=== PATIENT | male | born 1975 | race Caucasian/White ===

== ENCOUNTER 2019-08-12 00:33 | Inpatient (IN) ==
[2019-08-12] MEDS ORDERED: ONDANSETRON INJ 2 MG/ML 2 ML VIAL IV STA (00:53)
[2019-08-12] MEDS ORDERED: MoRPHine SULFATE 4 MG/ML 1 ML CARP\\VIAL IV STA (00:53)
[2019-08-12] MEDS ORDERED: SODIUM CHLORIDE 0.9% 1000ML 1,000 ML IV SCH (01:00)
[2019-08-12 01:06] LABS: Basophils # (auto) 0.06 K/uL (0-0.2); Basophils % (auto) 0.5 %; Eosinophils # (auto) 0.21 K/uL (0-0.5); Eosinophils % (auto) 1.7 %; Hematocrit (blood only) 44.8 % (42-52); Hemoglobin 15.5 g/dL (14.0-18.0); Immature Granulocytes # (auto) 0.03 K/uL (0.00-0.02); Immature Granulocytes % (auto) 0.2 %; Lymphocytes # (auto) 1.52 K/uL (1.2-3.4); Mean Corpuscular Hgb Conc 34.6 g/dL (32-36); Mean Corpuscular Volume 86.7 fL (80-100); Mean Platelet Volume 9.4 fL (7.4-10.4); Monocytes # (auto) 0.62 K/uL (0.11-0.59); Monocytes % (auto) 4.9 %; Neutrophils # (auto) 10.23 K/uL (1.4-6.5); Neutrophils % (auto) 80.7 %; Platelet Count 283 K/uL (130-400); RDW Coefficient of Variation 13.3 % (11.5-14.5); RDW Standard Deviation 42.2 fL (36.4-46.3); Red Blood Count 5.17 M/uL (4.7-6.1); White Blood Count 12.67 K/uL (4.8-10.8)
--- NOTE | 2019-08-12 01:09 | Emergency Department Note ---
History of Present Illness General Chief complaint: Abdominal Pain Stated complaint: SEVERE ABDOMINAL PAIN History of Present Illness Maximum Pain Intensity: 10 This 43-year-old presents to the ER complaining of abdominal pain Location: Abdomen Quality: Severe Severity: Severe Duration: Past few hours Timing: Started tonight Context: Patient was concerned and came in Modifying factors: better with nothing; worse with movement No prior abdominal surgeries. Patient denies chest pain, dyspnea, fevers, back pain. He does complain of testicular discomfort. No history of similar symptoms in the past. Home Medications Home Medications Medication Instructions Recorded Confirmed Type No Known Home Medications 08/12/19 08/12/19 History Allergies Allergy/AdvReac Type Severity Reaction Status Date / Time Quinolones Allergy Mild Unknown Unverified 09/29/18 10:59 Past Med/Surg History Medical History No significant past medical history Surgical History No significant past surgical history Social History Preferred Language: Danish marital status: Single current occupational status: employed Feels Safe at Home: Yes Smoking Status: Never smoker Hx Alcohol Use: No Review of Systems A total of 10 systems reviewed and were otherwise negative Physical Exam Vital Signs Vital Signs - 24 hr 08/12/19 00:35 08/12/19 01:04 Temperature 36.6 C Temperature Source Oral Pulse Rate 62 Pulse Rate [Right Finger] 56 L Pulse Rhythm Regular Pulse Rhythm [Right Finger] Regular Pulse Strength Normal Respiratory Rate 20 16 Respiratory Effort / Characteristics Non-Labored Spontaneous Non-Labored Spontaneous Respiratory Depth Normal Normal Respiratory Pattern Regular Blood Pressure 127/85 Blood Pressure [Right Arm] 126/76 Blood Pressure Mean 99 Blood Pressure Mean [Right Arm] 92 Blood Pressure Position Sitting Pulse Oximetry 98 98 Oxygen Delivery Method Room Air Room Air Sepsis Recent Fever Within 48 Hours No Sepsis Action Taken by Nursing No Action Required VITALS: Vitals are noted on the nurse's note and reviewed by myself. Vital signs stable. GENERAL: White male writhing in pain trying to vomit, in mild acute distress, nondiaphoretic, well-developed well-nourished. SKIN: Capillary reflex less than 2 seconds. HEENT: Normocephalic. PERRLA. EOMI. Nares patent. Mucous membranes moist. Neck is supple without nuchal rigidity. HEART: Regular rate and rhythm without murmurs gallops or rubs. LUNGS: Clear to auscultation bilaterally without wheezes, rales or rhonchi. No retractions or accessory muscle use. ABDOMEN: Positive bowel sounds x 4. Normal tympanic percussion. Soft, diffusely tender to palpation, without masses or organomegaly. Vines sign negative. No guarding or rebound tenderness. No CVA tenderness exam: Normal male genitalia, cremasteric reflex intact bilaterally, left testicle minimally tender to palpation diffusely without localized pain. Right testicle nontender to palpation. Regulatory Compliance Coordinator of the tech Tammy present. MUSCULOSKELETAL: No gross musculoskeletal defects. NEURO: Patient was alert and oriented to person place and time. Normal sensation to light and sharp touch. No focal neurological deficits. Course Administered Medications Ioversol (Optiray 320 100ml) 100 ml IV ONCE PRN PRN Reason: Interaction Checking Stop: 08/16/19 01:41 Last Admin: 08/12/19 01:42 Dose: 93 ml Documented by: [id number] Discontinued Medications Sodium Chloride (Nss 1000ml) 1,000 mls @ 999 mls/hr IV .Q1H1M JAIDA Stop: 08/12/19 02:00 Last Infusion: 08/12/19 02:37 Dose: 0 mls/hr Documented by: [id number] Admin: 08/12/19 01:03 Dose: 999 mls/hr Documented by: [id number] Ketorolac Tromethamine (Toradol) 10 mg IV NOW STA Stop: 08/12/19 01:15 Last Admin: 08/12/19 01:21 Dose: 10 mg Documented by: [id number] Morphine Sulfate (Morphine Sulfate) 4 mg IV NOW STA Stop: 08/12/19 00:54 Last Admin: 08/12/19 01:03 Dose: 4 mg Documented by: [id number] Ondansetron HCl (Zofran) 4 mg IV NOW STA Stop: 08/12/19 00:54 Last Admin: 08/12/19 01:03 Dose: 4 mg Documented by: [id number] Medical Decision Making Medical Records Attestation: I reviewed the patient's medical records. Home Medications Current Medication List: was personally reviewed by me Laboratory Data Attestation: I reviewed the patient's lab results. Result diagrams: 08/12/19 00:50 08/12/19 00:50 Lab Results 08/12/19 08/12/19 Range/Units 00:50 00:50 WBC 12.67 H (4.8-10.8) K/uL RBC 5.17 (4.7-6.1) M/uL Hgb 15.5 (14.0-18.0) g/dL Hct 44.8 (42-52) % MCV 86.7 (80-100) fL MCH 30.0 (25-34) pg MCHC 34.6 (32-36) g/dL RDW Std Deviation 42.2 (36.4-46.3) fL RDW Coeff of Hernandez 13.3 (11.5-14.5) % Plt Count 283 (130-400) K/uL MPV 9.4 (7.4-10.4) fL Immature Gran % (Auto) 0.2 % Neut % (Auto) 80.7 % Lymph % (Auto) 12.0 % Brewster % (Auto) 4.9 % Eos % (Auto) 1.7 % Baso % (Auto) 0.5 % Immature Gran # (Auto) 0.03 H (0.00-0.02) K/uL Neut # (Auto) 10.23 H (1.4-6.5) K/uL Lymph # (Auto) 1.52 (1.2-3.4) K/uL Brewster # (Auto) 0.62 H (0.11-0.59) K/uL Eos # (Auto) 0.21 (0-0.5) K/uL Baso # (Auto) 0.06 (0-0.2) K/uL Sodium 138 (136-145) mmol/L Potassium 3.8 (3.5-5.1) mmol/L Chloride 103 (98-107) mmol/L Carbon Dioxide 30 (21-32) mmol/L Anion Gap 5.0 (3-11) BUN 14 (7-18) mg/dl Creatinine 0.91 (0.6-1.4) mg/dl Est Cr Clr Drug Dosing 83.2 ml/min Est GFR ( Amer) 120.1 Est GFR (Non-Af Amer) 103.6 BUN/Creatinine Ratio 15.2 (10-20) Glucose 102 H (70-99) mg/dl Calcium 9.7 (8.5-10.1) mg/dl Total Bilirubin 0.5 (0.2-1) mg/dl AST 19 (15-37) U/L ALT 16 (12-78) U/L Alkaline Phosphatase 110 (45-117) U/L Total Protein 7.7 (6.4-8.2) gm/dl Albumin 4.2 (3.4-5.0) gm/dl Globulin 3.5 (2.5-4.0) gm/dl Albumin/Globulin Ratio 1.2 (0.9-2) Imaging Data Attestation: I personally reviewed and interpreted this imaging study as follows: Blood Pressure Blood Pressure Findings: Normal blood pressure MDM Narrative Prior records/ancillary studies reviewed. Triage Nursing notes reviewed. Additional history obtained from family. The patient's history was concerning for abdominal pain. Differential diagnosis: Etiologies such as appendicitis, testicular problem, diverticulitis, PUD, biliary pathology, UTI, pancreatitis, obstruction, mesenteric ischemia, aortic pathology, infections, inflammatory bowel disease, renal colic, as well as others were entertained. Physical examination findings: As above. ER treatment provided: An order was placed for continuous cardiac monitoring. The monitor shows a rate of [] with a [] rhythm. IV fluids, morphine, Zofran, Toradol, NG tube On reassessment the patient felt better. Diagnostics interpreted by me: The labs revealed mild leukocytosis, stable H&H Imaging studies: CT ABDOMEN & PELVIS With Contrast: Small bowel obstruction measuring up to 3.0 cm. The transition point is not identified. There is no evidence of bowel ischemia. No free air. Unremarkable appearance of the solid organs. Radiologist: Gideon Robb MD Study ready at 01:49 and initial results transmitted at 01:55 Communications: Clear Time Type Notes 08/12/19 02:00 Call From [facility] Rosanne Jones PA-C on 08/12 02:00 (-05:00) US SCROTAL: No testicular mass. Symmetric blood flow bilaterally. No torsion. Normal appearance of the epididymides. Left-sided varicocele. Radiologist: Gideon Robb MD KUB shows proper placement of the NG tube per my interpretation Consultation: A consultation was placed with the surgeon, Dr. Kelly and recommends NG tube with medical admission and she will evaluate the patient in the morning. Consultation was placed with medicine, Dr. Wall. the case was discussed and diagnostics were reviewed. The patient was evaluated in the ER for further treatment. Exam and history seem consistent with small bowel obstruction. I did call stat radiology and verified the CAT scan report as patient had an odd presentation. I spoke to surgery and to medicine. NG tube was placed. Patient is agreeable treatment plan of admission. Patient was reassessed and improved. Mild leukocytosis. Negative ultrasound. By the evaluation outlined above emergent etiologies such as appendicitis, diverticulitis, PUD, biliary pathology, UTI, pancreatitis, mesenteric ischemia, aortic pathology, infections, inflammatory bowel disease, renal colic, as well as others were deemed relatively unlikely. The pt informed about the findings as listed above. All questions were answered and pleased with the treatment. The chart was completed utilizing [employer] Speech voice recognition software. Grammatical errors, random word insertions, pronoun errors, and incomplete sentences are an occassional consequence of this system due to software limitations, ambient noise, and hardware issues. Any formal questions or concerns about the content, text, or information contained within the body of this dictation should be directly addressed to the physician special education teaching assistant for clarification. Impression & Plan Small bowel obstruction Discharge Plan Visit Data Chief Complaint: Abdominal Pain Stated Complaint: SEVERE ABDOMINAL PAIN ED Provider: Brinda Jones ED Midlevel Provider: Rosanne Burdick Discharge Problem: Small bowel obstruction Patient Disposition: Being Evaluated by Hospitalist Condition: Good Discharge Instructions Activity Restrictions/Additional Instructions: Forms Stand Alone Forms: Call Back Authorization, Work/School Release (ED), [facility] Prescriptions Prescriptions: No Action No Known Home Medications RF: 0 Referrals Referrals: Levon Toth MD [Physician] - Grady Crain MD [Primary Care Provider] -
[2019-08-12] MEDS ORDERED: KETOROLAC TROMETHAMINE 15 MG/ML VIAL IV STA (01:14)
[2019-08-12 01:24] LABS: Albumin Level 4.2 gm/dl (3.4-5.0); BUN Creatinine Ratio 15.2 (10-20); Calcium 9.7 mg/dl (8.5-10.1); Creatinine Clr Calc Pharmacy 83.2 ml/min; Est GFR (African American) 120.1; Est GFR (Non-African American) 103.6; Potassium 3.8 mmol/L (3.5-5.1)
[2019-08-12 01:27] LABS: Albumin Globulin Ratio 1.2 (0.9-2); Bilirubin,Total 0.5 mg/dl (0.2-1); Globulin 3.5 gm/dl (2.5-4.0); Total Protein 7.7 gm/dl (6.4-8.2)
[2019-08-12] MEDS ORDERED: IOVERSOL 100ml IV PRN (01:42)
[2019-08-12] MEDS ORDERED: HYDROmorphone INJ 0.5 MG/0.5 ML SYR IV PRN (04:14)
[2019-08-12] MEDS ORDERED: KETOROLAC 30 MG/ML VIAL IV PRN (04:14)
[2019-08-12] MEDS ORDERED: ONDANSETRON INJ 2 MG/ML 2 ML VIAL IV PRN (04:14)
[2019-08-12] MEDS: SODIUM CHLORIDE 0.9% 1000ML 1,000 ML IV SCH ×3 (04:47→20:31)
--- NOTE | 2019-08-12 05:59 | History and Physical Report ---
DATE OF ADMISSION: 08/12/2019 CHIEF COMPLAINT: Abdominal pain. 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 But the patient says he is not on any medication. Currently lives close to his mother. He presents with severe abdominal pain in the middle of the abdomen, 10/10 in severity, no radiation. Several episodes of vomiting. Said last bowel movement was yesterday morning. Currently, patient received pain medication in the ER and pain is somewhat better. He is status post NG tube. He says the NG tube is irritating him and is asking when it is going to come out. Otherwise, resting comfortably and hemodynamically stable. Denies any headache, no blurred vision, no earache, no runny nose. NG tube is irritating his throat and nose. No cough, no fever, no chills, no sweating, no chest pain, no shortness of breath. No black stools, no hematuria, no melena. No swelling in the legs, no rash. Otherwise active. ALLERGIES: QUINOLONES. PAST MEDICAL HISTORY: As mentioned above. PAST SURGICAL HISTORY: No surgeries as per the patient. MEDICATIONS: None as per patient. FAMILY HISTORY: Significant for mother had abdominal surgery, father had GA. SOCIAL HISTORY: Single, lives close to mom. Snuffs tobacco. Denies any alcoholism, but as per records heavy in the past,rare since 2006. No drug abuse as per records. REVIEW OF SYSTEMS: As per HPI. Rest of the review of systems are negative. PHYSICAL EXAMINATION: GENERAL: The patient is of moderate build, not in acute distress. VITAL SIGNS: Temperature 36.6, pulse 78, respiratory rate 16, blood pressure 123/75, oxygen 96% on room air. HEENT: No pallor, no icterus. Pupils equal, round, and reactive to light. NECK: No JVD, no neck masses, no carotid bruits. CARDIOVASCULAR: S1, S2 heard, regular rate and rhythm, no murmur, no gallop. RESPIRATORY SYSTEM: Normal AP diameter. No accessory muscle use. No wheezing, no crackles. ABDOMEN: Soft, bowel sounds absent. Diffuse tenderness. No rebound tenderness. Mild guarding. No rigidity. CENTRAL NERVOUS SYSTEM: Cranial nerves II-XII grossly intact. Nonfocal. EXTREMITIES: No edema, no erythema. LABORATORY DATA: WBC 12.6, hemoglobin 15.5, hematocrit 44.8, platelets 283. Sodium 138, potassium 3.8, chloride 103, bicarbonate 30, BUN 14, creatinine 0.9, serum glucose 102, calcium 9.7, total bilirubin 0.5, AST 19, ALT 16, alkaline phosphatase 110. IMAGING DATA: CT of the abdomen and pelvis shows small bowel obstructions, final reading pending. Scrotum ultrasound pending. ASSESSMENT AND PLAN: This is a 43-year-old male who presents with severe abdominal pain and found to have small-bowel obstruction. 1. Small-bowel obstruction. The patient has no history of surgeries in the past, no obstructions in the past. He did have NG tube in the ER, which he will continue. We will keep him n.p.o., IV fluids, IV antiemetics, and IV pain medication p.r.n. Consult surgery. Follow up KUB. Follow final ct scan results. 2. Deep venous thrombosis prophylaxis, sequential compression devices. 3. Disposition: Monitor in the medical floor. Level 1 full code. MTDD
[2019-08-12 06:18] LABS: Hematocrit (blood only) 41.5 % (42-52); Mean Corpuscular Hemoglobin 29.5 pg (25-34); Mean Corpuscular Hgb Conc 33.7 g/dL (32-36); Mean Corpuscular Volume 87.6 fL (80-100); Mean Platelet Volume 9.5 fL (7.4-10.4); Platelet Count 253 K/uL (130-400); RDW Coefficient of Variation 13.4 % (11.5-14.5); Red Blood Count 4.74 M/uL (4.7-6.1); White Blood Count 9.12 K/uL (4.8-10.8)
[2019-08-12 06:58] LABS: BUN Creatinine Ratio 19.8 (10-20); Calcium 8.5 mg/dl (8.5-10.1); Est GFR (African American) 136.5; Est GFR (Non-African American) 117.8
--- NOTE | 2019-08-12 08:28 | XRay Report ---
XR KUB/Abdomen 1 view CLINICAL HISTORY: Nasogastric tube placement COMPARISON STUDY: 07/11/2006 FINDINGS: There is a nasogastric tube within the stomach. There is no pathologic bowel dilatation. Th ere is contrast within both renal collecting systems and bladder secondary to a prior CT scan. There is no hydronephrosis. IMPRESSION: The nasogastric tube is positioned within the stomach. ACT 112: Negative or not required by law. Electronically signed by: Víctor Upton M.D. 08/12/2019 8:27 AM
--- NOTE | 2019-08-12 08:29 | Ultrasound Report ---
US scrotum/testicle CLINICAL HISTORY: left testicle pain COMPARISON STUDY: No previous studies for comparison. FINDINGS: The right testis measures 48 x 21 x 26 mm. The left testis measures 45 x 18 x 31 mm. There is no evidence of testicular torsion. No intratesticular masses are visualized. No pathologic epididymal masses are visualized. There is a left-sided varicocele. IMPRESSION: 1. No evidence of testicular torsion 2. No evidence of intratesticular mass 3. Left-sided varicocele ACT 112: Negative or not required by law. Electronically signed by: Víctor Upton M.D. 08/12/2019 8:28 AM
--- NOTE | 2019-08-12 08:29 | CT Scan Report ---
CT abd pelvis IV con only CLINICAL HISTORY: 43 years-old Male presenting with lower abd pain, left testicular pain. TECHNIQUE: Multidetector CT of the abdomen and pelvis was performed after the administration of intra venous contrast. IV contrast: 93 mL of Optiray 320. One or more dose lowering techniques were used co nsistent with the principles of ALARA (as low as reasonably achievable), including automatic exposure control, mA or kV adjustment to individual patient size, and/or use of iterative reconstruction. COMPARISON: 07/25/2008. CT DOSE (mGy.cm): The estimated cumulative dose is 315.12 mGy.cm. FINDINGS: Cargo Mate topogram: Unremarkable. Lung bases: Normal heart size. No pericardial or pleural effusion. Groundglass dependent infiltrates in the right lower lobe, asymmetric to the left. Liver: Normal morphology. No liver lesion. Patent hepatic vasculature. Biliary: No intrahepatic or extrahepatic biliary ductal dilatation. Gallbladder decompressed. Pancreas: Normal. Spleen: Normal. Adrenal glands: Normal. Kidneys and ureters: Normal. No hydronephrosis. Bladder: Normal. Pelvic organs: Prostate and seminal vesicles normal. Visualized portion of the scrotum and testes wit hin normal limits. Bowel: Normal appendix. Mild distention of small bowel measuring up to 2.9 cm in diameter anomaly aff ecting the proximal to mid ileum. The distal ileum is decompressed. Jejunum is also fairly decompress ed. Interloop fluid is evident at the dilated loops of bowel. No significant wall thickening or abnor mal bowel wall enhancement of the dilated small bowel. There is a smooth transition downstream to a n ormal caliber without evidence of a transition point. Smooth caliber transition also evident up strea m. Peritoneal cavity: Trace fluid in the pelvis. No free intraperitoneal gas. No pneumatosis. Lymph nodes: No enlarged lymph nodes in the abdomen or pelvis. Vasculature: Aorta and IVC patent and normal in caliber. Abdominal wall: Normal. Musculoskeletal: Normal. IMPRESSION: 1. Dilated small bowel in the mid to distal ileum without evidence of a transition point up stream o r downstream to suggest high-grade or complete obstruction. A partial low-grade bowel obstruction is not excluded. These findings could alternatively suggest a mild enteritis. 2. Grossly normal scrotum and testes. Notably, if there is continuing left testicular symptomatology , ultrasound would be recommended. 3. Groundglass dependent infiltrate in the right lower lobe asymmetric to the left. While this most likely represents atypical atelectasis, please correlate clinically to exclude an infectious or infla mmatory infiltrate. ACT 112: Negative or not required by law. Electronically signed by: Hever Orozco M.D. 08/12/2019 8:27 AM
[2019-08-12] MEDS: FAMOTIDINE 20 MG in SYRINGE 3 ML IV SCH ×2 (08:32→20:30)
--- NOTE | 2019-08-12 09:32 | Surgery Consultation ---
Date of Consultation August 12, 2019 Assessment & Plan (1) Abdominal pain: This patient developed nausea and vomiting last night following eating supper. The CAT scan shows dilation of the distal bowel and not the proximal bowel. This is more consistent with an enteritis. He has been having intermittent for the last year. Colonoscopy with visualization of the terminal ileum may be appropriate as well. He does not have a history of diarrhea however. I would agree with conservative measures for now. I do not think there is any need for intermediate surgical intervention which may at some point become necessary. Present on Admission?: Yes History of Present Illness Reason for Consultation: Abdominal pain with nausea and vomiting Requesting Physician: Sina Pritchett DO Attending Physician: Sina Pritchett DO History of Present Illness I have been asked by Dr. Pritchett to see this 43-year-old male who presents to the emergency room with a complaint of abdominal pain with nausea and vomiting. The patient states that he was doing well yesterday. He had a bowel movement in the morning that was normal and without melena or blood and that is his normal pattern. He ate supper and following that developed abdominal discomfort mostly in the lower abdomen associated with nausea and vomiting. He has had episodes of discomfort intermittently over the last year but each of those episodes typically was less severe and only lasted for 5 to 10 minutes. This has lasted much longer. He presented to the emergency room and an NG tube was placed. That helped relieve the discomfort. He has not had any flatus or bowel movement since coming to the emergency room. He has not had fever with this. He is not had chills. He has no long-term history of GI disorders. 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 Beliefs That Will Affect Care: None marital status: Single Current Living Situation: Alone current occupational status: employed Other Information That Helps Us Care for You: No Feels Safe at Home: Yes Safety Concerns: Feels Safe At This Time Smoking Status: Never smoker Tobacco Type: smokeless tobacco ; Do You Dip or Chew Tobacco: Yes ; Second Hand Exposure: No ; Tobacco Cessation Education Requested by Patient: No Hx Alcohol Use: No Hx Substance Use: Yes substance use type: marijuana Last Used Substance: Days (ago) Last Used Substance Other:: about a week ago Physical Exam Constitutional: no acute distress Respiratory: normal respiratory effort, lungs clear to auscultation Cardiovascular: Rate/Rhythm: regular rate and regular rhythm Gastrointestinal (Abdomen): Inspection/Auscultation: + hypoactive bowel sounds; abdomen not distended Percussion/Palpation: + abdomen tender (Minimally tender lower abdomen) and abdomen soft; abdomen not rigid Results & Data Vital Signs (Past 12 Hours) Vital Signs Temp Pulse Pulse Resp BP BP Pulse Ox 08/12/19 07:13 36.9 C 63 16 116/74 97 08/12/19 03:50 37.0 C 60 16 135/95 95 08/12/19 03:15 78 16 123/75 96 08/12/19 01:04 56 L 16 126/76 98 08/12/19 00:35 36.6 C 62 20 127/85 98 Laboratory Results 08/12/19 08/12/19 08/12/19 Range/Units 05:54 05:54 00:50 WBC 9.12 (4.8-10.8) K/uL RBC 4.74 (4.7-6.1) M/uL Hgb 14.0 (14.0-18.0) g/dL Hct 41.5 L (42-52) % MCV 87.6 (80-100) fL MCH 29.5 (25-34) pg MCHC 33.7 (32-36) g/dL RDW Std Deviation 43.0 (36.4-46.3) fL RDW Coeff of Hernandez 13.4 (11.5-14.5) % Plt Count 253 (130-400) K/uL MPV 9.5 (7.4-10.4) fL Immature Gran % (Auto) % Neut % (Auto) % Lymph % (Auto) % [place] % (Auto) % Eos % (Auto) % Baso % (Auto) % Immature Gran # (Auto) (0.00-0.02) K/uL Neut # (Auto) (1.4-6.5) K/uL Lymph # (Auto) (1.2-3.4) K/uL [place] # (Auto) (0.11-0.59) K/uL Eos # (Auto) (0-0.5) K/uL Baso # (Auto) (0-0.2) K/uL Sodium 138 138 (136-145) mmol/L Potassium 4.0 3.8 (3.5-5.1) mmol/L Chloride 107 103 (98-107) mmol/L Carbon Dioxide 28 30 (21-32) mmol/L Anion Gap 3.0 5.0 (3-11) BUN 13 14 (7-18) mg/dl Creatinine 0.68 0.91 (0.6-1.4) mg/dl Est Cr Clr Drug Dosing 110.0 83.2 ml/min Est GFR ( Amer) 136.5 120.1 Est GFR (Non-Af Amer) 117.8 103.6 BUN/Creatinine Ratio 19.8 15.2 (10-20) Glucose 93 102 H (70-99) mg/dl Calcium 8.5 9.7 (8.5-10.1) mg/dl Total Bilirubin 0.5 (0.2-1) mg/dl AST 19 (15-37) U/L ALT 16 (12-78) U/L Alkaline Phosphatase 110 (45-117) U/L Total Protein 7.7 (6.4-8.2) gm/dl Albumin 4.2 (3.4-5.0) gm/dl Globulin 3.5 (2.5-4.0) gm/dl Albumin/Globulin Ratio 1.2 (0.9-2) 08/12/19 Range/Units 00:50 WBC 12.67 H (4.8-10.8) K/uL RBC 5.17 (4.7-6.1) M/uL Hgb 15.5 (14.0-18.0) g/dL Hct 44.8 (42-52) % MCV 86.7 (80-100) fL MCH 30.0 (25-34) pg MCHC 34.6 (32-36) g/dL RDW Std Deviation 42.2 (36.4-46.3) fL RDW Coeff of Hernandez 13.3 (11.5-14.5) % Plt Count 283 (130-400) K/uL MPV 9.4 (7.4-10.4) fL Immature Gran % (Auto) 0.2 % Neut % (Auto) 80.7 % Lymph % (Auto) 12.0 % [place] % (Auto) 4.9 % Eos % (Auto) 1.7 % Baso % (Auto) 0.5 % Immature Gran # (Auto) 0.03 H (0.00-0.02) K/uL Neut # (Auto) 10.23 H (1.4-6.5) K/uL Lymph # (Auto) 1.52 (1.2-3.4) K/uL [place] # (Auto) 0.62 H (0.11-0.59) K/uL Eos # (Auto) 0.21 (0-0.5) K/uL Baso # (Auto) 0.06 (0-0.2) K/uL Sodium (136-145) mmol/L Potassium (3.5-5.1) mmol/L Chloride (98-107) mmol/L Carbon Dioxide (21-32) mmol/L Anion Gap (3-11) BUN (7-18) mg/dl Creatinine (0.6-1.4) mg/dl Est Cr Clr Drug Dosing ml/min Est GFR ( Amer) Est GFR (Non-Af Amer) BUN/Creatinine Ratio (10-20) Glucose (70-99) mg/dl Calcium (8.5-10.1) mg/dl Total Bilirubin (0.2-1) mg/dl AST (15-37) U/L ALT (12-78) U/L Alkaline Phosphatase (45-117) U/L Total Protein (6.4-8.2) gm/dl Albumin (3.4-5.0) gm/dl Globulin (2.5-4.0) gm/dl Albumin/Globulin Ratio (0.9-2) Diagnostic Findings I reviewed the images as well as the reports CT abd pelvis IV con only CLINICAL HISTORY: 43 years-old Male presenting with lower abd pain, left testicular pain. TECHNIQUE: Multidetector CT of the abdomen and pelvis was performed after the administration of intravenous contrast. IV contrast: 93 mL of Optiray 320. One or more dose lowering techniques were used consistent with the principles of ALARA (as low as reasonably achievable), including automatic exposure control, mA or kV adjustment to individual patient size, and/or use of iterative reconstruction. COMPARISON: 07/25/2008. CT DOSE (mGy.cm): The estimated cumulative dose is 315.12 mGy.cm. FINDINGS: Resource Paraprofessional topogram: Unremarkable. Lung bases: Normal heart size. No pericardial or pleural effusion. Groundglass dependent infiltrates in the right lower lobe, asymmetric to the left. Liver: Normal morphology. No liver lesion. Patent hepatic vasculature. Biliary: No intrahepatic or extrahepatic biliary ductal dilatation. Gallbladder decompressed. Pancreas: Normal. Spleen: Normal. Adrenal glands: Normal. Kidneys and ureters: Normal. No hydronephrosis. Bladder: Normal. Pelvic organs: Prostate and seminal vesicles normal. Visualized portion of the scrotum and testes within normal limits. Bowel: Normal appendix. Mild distention of small bowel measuring up to 2.9 cm in diameter anomaly affecting the proximal to mid ileum. The distal ileum is decompressed. Jejunum is also fairly decompressed. Interloop fluid is evident at the dilated loops of bowel. No significant wall thickening or abnormal bowel wall enhancement of the dilated small bowel. There is a smooth transition downstream to a normal caliber without evidence of a transition point. Smooth caliber transition also evident up stream. Peritoneal cavity: Trace fluid in the pelvis. No free intraperitoneal gas. No pneumatosis. Lymph nodes: No enlarged lymph nodes in the abdomen or pelvis. Vasculature: Aorta and IVC patent and normal in caliber. Abdominal wall: Normal. Musculoskeletal: Normal. IMPRESSION: 1. Dilated small bowel in the mid to distal ileum without evidence of a transition point up stream or downstream to suggest high-grade or complete obstruction. A partial low-grade bowel obstruction is not excluded. These findings could alternatively suggest a mild enteritis. 2. Grossly normal scrotum and testes. Notably, if there is continuing left testicular symptomatology, ultrasound would be recommended. 3. Groundglass dependent infiltrate in the right lower lobe asymmetric to the left. While this most likely represents atypical atelectasis, please correlate clinically to exclude an infectious or inflammatory infiltrate. XR KUB/Abdomen 1 view CLINICAL HISTORY: Nasogastric tube placement COMPARISON STUDY: 07/11/2006 FINDINGS: There is a nasogastric tube within the stomach. There is no pathologic bowel dilatation. There is contrast within both renal collecting systems and bladder secondary to a prior CT scan. There is no hydronephrosis. IMPRESSION: The nasogastric tube is positioned within the stoma US scrotum/testicle CLINICAL HISTORY: left testicle pain COMPARISON STUDY: No previous studies for comparison. FINDINGS: The right testis measures 48 x 21 x 26 mm. The left testis measures 45 x 18 x 31 mm. There is no evidence of testicular torsion. No intratesticular masses are visualized. No pathologic epididymal masses are visualized. There is a left-sided varicocele. IMPRESSION: 1. No evidence of testicular torsion 2. No evidence of intratesticular mass 3. Left-sided varicocele
--- NOTE | 2019-08-12 11:14 | Hospitalist Progress Note ---
Date of Service August 12, 2019 Assessment & Plan (1) Small bowel obstruction: ASSESSMENT AND PLAN: This is a 43-year-old male who presents with severe abdominal pain and found to have small-bowel obstruction. 1. Small-bowel obstruction. The patient has no history of surgeries in the [facility], no obstructions in the past. He did have NG tube in the ER, which he will continue. We will keep him n.p.o., IV fluids, IV antiemetics, and IV pain medication p.r.n. Consult surgery. Follow up KUB. Follow final ct scan results. 2. Deep venous thrombosis prophylaxis, sequential compression devices. 3. Disposition: Monitor in the medical floor. Level 1 full code. labs checked ROS-No Headache, No Visual Changes, No Nausea, No Vomiting, No Fever, No Chills, No Neck Pain or Stiffness, No Chest Pain, No Palpitations, No SOB, No FAROOQ, No Cough, No Sputum, No Wheezing, No Abdominal Pain, No Diarrhea, No Hematemesis, No Hemoptysis, No Unexpected Weight Loss, No Flank pain, No Melena, No Hematochezia, No Frequency, No Urgency, No Burning, No Hematuria, No Rashes, No Diaphoresis. Appetite is Normal Physical Exam Gen-AAO x 3, NAD, Afebrile, +NGT Head-NCAT, EOMI, PERRLA, Anicteric Sclera, No Posterior Pharyngeal Erythema Neck-Supple, No JVD, No Thyromegaly, No Masses, No LAD, No Bruits Lungs-Clear to Auscultation Bilaterally, No Rales, No Rhonchi, No Wheezing, No Crepitus Chest-No S4, +S1, +S2, No S3, No Murmurs, No Rubs, No Gallops, No Ectopy Abdomen-Soft, Bowel Sounds Present, Non Tender, Non Distended, No Hepatomegaly, No Splenomegaly, No Palpable Masses, No Rebound, No Rigidity, No Guarding Musculoskeletal-Full Range of Motion Bilaterally, No CVAT Extremities-No Cyanosis, No Clubbing, No Edema Nuero-Cranial Nerves II-XII grossly intact, Motor WNL, DTRs WNL, Strength WNL, Non Focal Psych-Normal Mood Results & Data Vital Signs (Past 12 Hours) Vital Signs Temp Pulse Pulse Resp BP BP Pulse Ox 08/12/19 07:13 36.9 C 63 16 116/74 97 08/12/19 03:50 37.0 C 60 16 135/95 95 08/12/19 03:15 78 16 123/75 96 08/12/19 01:04 56 L 16 126/76 98 08/12/19 00:35 36.6 C 62 20 127/85 98
[2019-08-13] MEDS: SODIUM CHLORIDE 0.9% 1000ML 1,000 ML IV SCH (04:12)
[2019-08-13 04:26] LABS: Appearance Urine Clear (Clear); Bilirubin Urine Negative (Negative); Blood Urine Negative (Negative); Color Urine Yellow; Glucose Urine UA Negative (Negative); Leukocyte Esterase Urine Negative (Negative); Nitrite Urine Negative (Negative); Protein Urine Negative (Negative); Specific Gravity Urine 1.021 (1.000-1.030); Urobilinogen Urine Negative (Negative)
[2019-08-13 04:37] LABS: Ketones Urine 3+ (Negative)
[2019-08-13 06:19] LABS: Hematocrit (blood only) 41.6 % (42-52); Hemoglobin 13.9 g/dL (14.0-18.0); Mean Corpuscular Hemoglobin 29.6 pg (25-34); Mean Corpuscular Hgb Conc 33.4 g/dL (32-36); Mean Corpuscular Volume 88.5 fL (80-100); Mean Platelet Volume 9.9 fL (7.4-10.4); Platelet Count 233 K/uL (130-400); RDW Coefficient of Variation 13.3 % (11.5-14.5); RDW Standard Deviation 44.1 fL (36.4-46.3); White Blood Count 10.72 K/uL (4.8-10.8)
--- NOTE | 2019-08-13 06:23 | Surgery Progress Note ---
Date of Service August 13, 2019 Assessment & Plan (1) Abdominal pain: Abdominal pain has resolved Peristalsis is returning Can discontinue NG tube Start clear liquids Subjective Feels very well this morning Denies abdominal pain Denies nausea Had large bowel movement overnight Passing flatus Physical Exam Gastrointestinal (Abdomen): Inspection/Auscultation: abdomen normal to inspection and normal bowel sounds; abdomen not distended Percussion/Palpation: abdomen soft; abdomen nontender Results & Data Vital Signs (Past 12 Hours) Vital Signs Temp Pulse Resp BP Pulse Ox 08/12/19 23:20 36.8 C 55 L 16 120/73 95
[2019-08-13 06:59] LABS: BUN Creatinine Ratio 29.1 (10-20); Calcium 8.2 mg/dl (8.5-10.1); Creatinine Clr Calc Pharmacy 116.9 ml/min; Est GFR (Non-African American) 120.8; Potassium 3.8 mmol/L (3.5-5.1)
[2019-08-13] MEDS: FAMOTIDINE 20 MG in SYRINGE 3 ML IV SCH (09:03)
--- NOTE | 2019-08-13 10:11 | Discharge Summary ---
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 But the patient says he is not on any medication. Currently lives close to his mother. He presents with severe abdominal pain in the middle of the abdomen, 10/10 in severity, no radiation. Several episodes of vomiting. Said last bowel movement was yesterday morning. Currently, patient received pain medication in the ER and pain is somewhat better. He is status post NG tube. He says the NG tube is irritating him and is asking when it is going to come out. Otherwise, resting comfortably and hemodynamically stable. Denies any headache, no blurred vision, no earache, no runny nose. NG tube is irritating his throat and nose. No cough, no fever, no chills, no sweating, no chest pain, no shortness of breath. No black stools, no hematuria, no melena. No swelling in the legs, no rash. Otherwise active. Admission Exam Per Admitting Provider GENERAL: The patient is of moderate build, not in acute distress. VITAL SIGNS: Temperature 36.6, pulse 78, respiratory rate 16, blood pressure 123/75, oxygen 96% on room air. HEENT: No pallor, no icterus. Pupils equal, round, and reactive to light. NECK: No JVD, no neck masses, no carotid bruits. CARDIOVASCULAR: S1, S2 heard, regular rate and rhythm, no murmur, no gallop. RESPIRATORY SYSTEM: Normal AP diameter. No accessory muscle use. No wheezing, no crackles. ABDOMEN: Soft, bowel sounds absent. Diffuse tenderness. No rebound tenderness. Mild guarding. No rigidity. CENTRAL NERVOUS SYSTEM: Cranial nerves II-XII grossly intact. Nonfocal. EXTREMITIES: No edema, no erythema. Principal Diagnosis SBO-Resolved Gastroenteritis Discharge Exam ROS-No Headache, No Visual Changes, No Nausea, No Vomiting, No Fever, No Chills, No Neck Pain or Stiffness, No Chest Pain, No Palpitations, No SOB, No FAROOQ, No Cough, No Sputum, No Wheezing, No Abdominal Pain, No Diarrhea, No Hematemesis, No Hemoptysis, No Unexpected Weight Loss, No Flank pain, No Melena, No Hematochezia, No Frequency, No Urgency, No Burning, No Hematuria, No Rashes, No Diaphoresis. Appetite is Normal Physical Exam Gen-AAO x 3, NAD, Afebrile Head-NCAT, EOMI, PERRLA, Anicteric Sclera, No Posterior Pharyngeal Erythema Neck-Supple, No JVD, No Thyromegaly, No Masses, No LAD, No Bruits Lungs-Clear to Auscultation Bilaterally, No Rales, No Rhonchi, No Wheezing, No Crepitus Chest-No S4, +S1, +S2, No S3, No Murmurs, No Rubs, No Gallops, No Ectopy Abdomen-Soft, Bowel Sounds Present, Non Tender, Non Distended, No Hepatomegaly, No Splenomegaly, No Palpable Masses, No Rebound, No Rigidity, No Guarding Musculoskeletal-Full Range of Motion Bilaterally, No CVAT Extremities-No Cyanosis, No Clubbing, No Edema Nuero-Cranial Nerves II-XII grossly intact, Motor WNL, DTRs WNL, Strength WNL, Non Focal Psych-Normal Mood Discharge Data Allergies Allergy/AdvReac Type Severity Reaction Status Date / Time Quinolones Allergy Mild Unknown Unverified 09/29/18 10:59 Consultations 08/12/19 02:02 ED Decision to Admit Stat 08/12/19 04:21 Consult General Surgery Routine Ordered Studies 08/12/19 01:14 CT abd pelvis IV con only Urgent US scrotum/testicle Urgent Current Diagnoses Unspecified intestinal obstruction, unspecified as to partial versus complete obstruction (08/12/19) Unspecified abdominal pain (08/12/19) Allergies Quinolones Allergy (Mild, Unverified 09/29/18 10:59) Unknown Height/Weight/Isolation Height 5 ft Weight 62.4 kg Chemistry 08/12/19 08/12/19 08/13/19 00:50 05:54 05:34 Sodium 138 138 139 Potassium 3.8 4.0 3.8 Chloride 103 107 108 H Carbon Dioxide 30 28 21 Anion Gap 5.0 3.0 10.0 BUN 14 13 18 Creatinine 0.91 0.68 0.64 Glucose 102 H 93 55 L Urinalysis 08/13/19 04:10 Urine Color Yellow Urine Appearance Clear Urine pH 5.0 Ur Specific [place] 1.021 Urine Protein Negative Urine Glucose (UA) Negative Urine Ketones 3+ H Urine Blood Negative Urine Nitrite Negative Urine Bilirubin Negative Hospital Course (1) Small bowel obstruction: ASSESSMENT AND PLAN: This is a 43-year-old male who presents with severe abdominal pain and found to have small-bowel obstruction. 1. Small-bowel obstruction. Resolved-+BM and Flatus, NGT out DC home Total Time Total Time Spent Total Time Spent (In Minutes): 45 mins Total Time Includes: Examination of the Patient, Discharge Planning, Medication Reconciliation and Communication With Other Providers Discharge Plan Discharge Items Patient Disposition: Home - Self-Care Reason For Visit: SMALL BOWEL OBSTRUCTION Discharge Diagnosis: Small Bowel Obstruction Gastroenteritis Condition on Discharge: Good Activity: Resume your previous activity Lifting: None and Gradually increase as tolerated Bathing: No limitations Sexual Activity: When tolerated Exercise/Sports: Gradually increase as tolerated Driving/Machine Use: No limitations Weightbearing: Full weightbearing Non-emergency contact: Primary Care Provider Call non-emergency contact if: you have any medication questions Follow-up/Referrals: Grady Crain MD [Primary Care Provider] - Diet: Regular Addtl Attending Provider Instructions: Ease back to clear diet if Abd pain returns Pending Studies at Discharge: No Stand-Alone Forms: Call Back Authorization, [employer], Smoking Cessation Medications and DC Order Prescriptions: New Maalox Maximum Strength 400-400-40 mg/5 mL suspension 10 ml PO Q6H PRN (Reason: indigestion) Qty: 355 RF: 0 No Action No Known Home Medications RF: 0 Discharge Orders: Discharge Order (Routine); Ordered 08/13/19 Ordered By: Sina Pritchett Admission Data Admit Date/Time: 08/12/19 02:49 Attending Provider: Sina Pritchett Admit Provider: Dom Wall Primary Care Provider: Grady Crain Other Providers: Dom Wall Mark
== END 2019-08-13 11:02 | disposition home or self-care (01) | DRG 389 ==
LOC: ED 00:33 → 3N 02:49